=== PATIENT | male | born 1965 | race Caucasian/White ===

== ENCOUNTER 2022-11-29 06:09 | Outpatient (CLI) | payer BC, SELFPAY | END 2022-11-29 06:10 | disposition home or self-care (01) | LOC: OP CLINIC 06:12 | PROVIDERS: PCP Family Medicine; Visit Provider Internal Medicine | DX: Z12.11 Encounter for screening for malignant neoplasm of colon (principal); K57.30 Diverticulosis of large intestine without perforation or abscess without bleeding; Z80.0 Family history of malignant neoplasm of digestive organs; Z86.010 Personal history of colon polyps | CPT/HCPCS: 45378; J2250; J3010 ==

== ENCOUNTER 2023-03-10 07:40 | Outpatient (CLI) | payer BC, SELFPAY | END 2023-03-10 07:41 | disposition home or self-care (01) | LOC: NFLDREF 11:28 | PROVIDERS: PCP Family Medicine; Referring Provider Family Medicine; Visit Provider Family Medicine | DX: Z00.00 Encounter for general adult medical examination without abnormal findings (principal); I10 Essential (primary) hypertension; E78.5 Hyperlipidemia, unspecified; E66.9 Obesity, unspecified | CPT/HCPCS: 80048; 80053; 80061 ==

== ENCOUNTER 2023-09-16 08:05 | Outpatient (CLI) | payer BC, SELFPAY ==
--- OUTSIDE RECORDS SUMMARY | 2023-09-16 08:07 | XMS_ITS | Clinical Summary ---
Author Name Unknown Organization [employer] [facility] Address [place], [place] [address] Care Team Providers Care General Manager Land Department Name Role Phone Pcp, No Primary Care Provider Unavailabl e Allergies Active Allergy Reactions Criticality Noted Date Comments No Known Drug Allergies Penicillins 12/12/2006 as a child Sulfa (Sulfonamide Antibiotics) Rash 09/2008 Medications Medication Sig Dispensed Refills Start Date End Date Status NIMESH 180 MG TAB take 1 tablet (180mg) by oral route once daily 0 Active medication order composer 0 05/17/2014 Active INHALANT IMMUNOTHERAPYIndication s:Allergic rhinitis, unspecified allergic rhinitis type See recipe/order under Chart Review/Scan Tab 0 03/29/2015 Active Active Problems Problem Noted Date Diagnosed Date Allergic rhinitis, cause unspecified 12/10/2006 Overview: cats,dust Immunizations Name Administration Dates Next Due Td (Age >=7 Years) 12/27/1999 Social History Tobacco Use Types Packs/Day Years Used Date Smoking Tobacco: Never Smokeless Tobacco: Never Tobacco Cessation:Counseling Given: Yes Alcohol Use Standard Drinks/Week Comments Not Asked 0 (1 standard drink = 0.6 oz pur e alcohol) Sex and Gender Information Value Date Recorded Sex Assigned at Not on file Gender Identity Not on file Sexual Orientation Not on file Obstetrics History Last Filed Vital Signs Vital Sign Reading Time Taken Comments Blood Pressure 138/93 09/23/2018 9:51 AM COMMUNITY MENTAL HEALTH SOCIAL WORKER Pulse 82 09/23/2018 9:51 AM COMMUNITY MENTAL HEALTH SOCIAL WORKER Temperature 36.8 ??C (98.2 ??F) 05/17/2014 9:43 AM CD T Respiratory Rate - - Oxygen Saturation 97% 05/17/2014 9:43 AM CDT Inhaled Oxygen Concentration - - Weight 129.5 kg (285 lb 8 oz) 05/17/2014 9:43 AM CDT Height 179.1 cm (5' 10.5) 05/17/2014 9:43 AM CD T Body Mass Index 40.39 05/17/2014 9:43 AM CDT Plan of Treatment Health Maintenance Due Date Last Done Comments COVID-19 vaccine series (#1) 05/08/1968 Tdap 11/05/1978 Depression screening for age 12+ 1979 HIV for age 15-65 11/05/1982 BMI (ht and wt on same day) for age 18+ 11/05/1985 Hepatitis C screening for ag e 18-79 11/05/1985 Tetanus booster 12/26/2009 12/27/1999 Lipids for age 45-75 11/05/2012 Colonoscopy through age 75 12/12/201612/12, 12/12/2006 Zoster (shingles) series for age 50+ (1 of 2) 11/05/2017 Influenza for age 50-64 04/11/2023 Pneumococcal series for age 6-64 Aged Out No longer eligible b ased on patient's age to complete this topic Care Teams General Manager Land Department Relationship Specialty Start Date End Date Pcp, No . PCP - General 03/04/16
--- OUTSIDE RECORDS SUMMARY | 2023-09-16 08:07 | XMS_ITS | Clinical Summary ---
Author Name Unknown Organization [facility] Address [address] [place] [address] Care Team Providers Care Contracting Manager Name Role Phone Clinician, Not Found MD Primary Care Provider Un available Source Comments You are receiving this document as you are listed as the primary care provider,follow-up provider, or the patient has been referred to you for consultation.This is in compliance with the Medicare and[facility] EHR Incentive Program,which states Providers who transition their patient to another setting of careor provider of care or refers their patient to another provider of care shouldprovide summary care record for each transition of care or referral. [employer] Allergies Active Allergy Reactions Criticality Noted Date Comments Penicillins 01/19/2004 PN: LW Reaction: Unknown Reaction Sulfa Antibiotics 10/10/2008 PN: LW Reaction: rash/hives Medications Medication Sig Dispensed Refills Start Date End Date Status cetirizine (AKA ZYRTEC) 10 MG tablet Take 1 tablet by mouth daily (every 24 hours). 1 tablet 0 11/12/2012 Active azithromycin (AKA ZITHROMAX) 250 MG tablet Take 1 tablet by mouth daily (every 24 hours). Take 2 tablets the 1st day the every day x 4 days 6 tablet 0 11/12/2012 Active Additional Information Patient not taking.Reported on 11/10/2021 azithromycin (AKA ZITHROMAX) 250 MG tablet Take 2 tablets by mouth on day 1, then take 1 tablet by mouth daily on days 2-5. 6 tablet 0 06/11/2013 Active Additional Information Patient not taking.Reported on 11/10/2021 fluticasone (AKA VERAMYST) 27.5 MCG/SPRAY nasal solution Place 2 sprays into each nostril daily (every 24 hours). PUT ON FILE ONLY 10 g 11 01/04/2016 Active Additional Information Patient not taking.Reported on 12/15/2019 azelastine (ASTELIN) 0.1 % nasal solution Place 1 [place] into both nostrils two times a day. 30 mL 11 12/02/2018 Active Additional Information Patient not taking.Reported on 11/10/2021 pseudoephedrine (SUDOGEST 12 HOUR) 120 MG 12 hour release tablet Take 1 Tablet by mouth two times a day. 180 Tablet 1 12/15/2019 Active predniSONE (DELTASONE) 20 MG tablet Take 1 Tablet by mouth daily. 15 Tablet 0 12/15/2019 Active Additional Information Patient not taking.Reported on 11/10/2021 lisinopril (ZESTRIL) 10 MG tablet Take 5 mg by mouth daily. 0 Active cetirizine (ZYRTEC) 10 MG tablet Take 10 mg by mouth daily. 0 Active oxymetazoline (AFRIN) 0.05 % nasal spray Place 2 Sprays into both nostrils two times a day. 30 mL 0 11/10/2021 Active Active Problems Problem Noted Date Diagnosed Date Allergic rhinitis 01/15/2003 Overview: Rhinitis Allergic NOS Social History Tobacco Use Types Packs/Day Years Used Date Smoking Tobacco: Never Smokeless Tobacco: Never Sex and Gender Information Value Date Recorded Sex Assigned at Not on file Gender Identity Not on file Sexual Orientation Not on file Last Filed Vital Signs Vital Sign Reading Time Taken Comments Blood Pressure 174/97 11/10/2021 4:24 PM CDT Pulse 95 11/10/2021 4:24 PM CDT Temperature 37.1 ??C (98.8 ??F) 11/10/2021 4:24 PM CD T Respiratory Rate 18 11/10/2021 4:24 PM CDT Oxygen Saturation 100% 11/10/2021 4:24 PM CDT Inhaled Oxygen Concentration - - Weight 134.4 kg (296 lb 6.4 oz) 09/05/2021 8:42 AM RADIAL SAW OPERATOR Height 179.1 cm (5' 10.5) 09/05/2021 8:42 AM CS T Body Mass Index 41.93 09/05/2021 8:42 AM RADIAL SAW OPERATOR Plan of Treatment Health Maintenance Due Date Last Done Comments Colon Cancer Screening Plan Due 1967 Hep C Screening (Preventive Services) 1967 HepB (1) 1967 PSA Screening Discussion 1967 IPV (Polio) (2 of 3 - 4-dose series) 10/20/1977 09/22/1977 HIV Screening (Preventive Services) 1983 Adult Preventive Visit 11/05/1985 DTaP/Tdap/Td (1 - Tdap) 12/28/1999 12/27/1999 Cholesterol 11/05/2002 Zoster/Shingles (1 of 2) 11/05/2017 COVID-19 Vaccine (4 - season) 2023 06/27/2021, 11/23/2020, 10/26/2020 Influenza (#1) 2023 05/23/2021, 05/11, 05/25/2019, Additional history exists HepA Aged Out No longer eligi ble based on patient's age to complete this topic Hib Aged Out No longer eligi ble based on patient's age to complete this topic MCV4 Aged Out No longer eligi ble based on patient's age to complete this topic Pneumococcal Aged Out No longer eligi ble based on patient's age to complete this topic Care Teams Contracting Manager Relationship Specialty Start Date End Date Clinician, Not Found, [place] [address] PCP - General 04/28/14
--- NOTE | 2023-09-16 08:15 | MR_ITS ---
[facility] [address] [facility] [address] Phone:?[phone] Fax:?[phone] Referring Physician Information: Lavell Au M.D. [address] [place] [address] Phone:?[phone] Fax:?[phone] Patient:Travis Bryan D.O.B:?1965 Sex:?Male Phone:?[phone] [facility] MRN:?[id number] Exam Date:?09/16/2023 EXAM: MRI of the RIGHT KNEE, without contrast CLINICAL INFORMATION: Male, 57 years old, with right knee pain. INDICATION: Evaluate for meniscal tear. PRIOR SURGERY: None reported. PLAIN FILMS: Knee radiographs dated 09/08/2023. COMPARISONS: No prior MRIs available. TECHNICAL INFORMATION: Using a 1.5T MR scanner and a localizing surface coil: sagittals: PD, PDFS coronals: PD, T2FS axials: PD, PDFS SEDATION: None CONTRAST: None FINDINGS: Knee joint: Effusion: Moderate-marked right knee effusion, with synovitis. Popliteal cyst: Small, unruptured popliteal (Tolliver's) cyst. Loose bodies: None. Subcutaneous and extra-articular soft tissues: Moderate-marked anterior subcutaneous soft tissue swelling extending from the patella to the tibial tubercle (sagittal T2FS series 6 image 14). Ligaments: ACL: Intact ACL anteromedial and posterolateral bundles, without sprain or tear. PCL: Mild thickening and abnormal signal throughout the distal PCL, without PCL tear (sagittal T2FS series 6 image 17). MCL: Intact MCL superficial and deep layers, without injury. LCL: Intact LCL, without injury. Posterolateral corner: No posterolateral corner soft tissue injury. Popliteus, biceps femoris, iliotibial band, popliteofibular ligament and lateral gastrocnemius are intact. Posteromedial corner: No posteromedial corner soft tissue injury. Semimembranosus, pes anserine tendons and posterior oblique ligament are without injury, tendinopathy or bursitis. Extensor mechanism: Patellar tendon: Intact, without tendinopathy. Quadriceps tendon: Intact, without tendinopathy. Retinacula: Medial and lateral retinacula are intact. Fat pads: Mild edema-like signal is present throughout the knee fat pads, in keeping with synovitis. Medial compartment: Medial meniscus: Apical free edge and undersurface tearing of the posterior horn of the medial meniscus measures 1.6 cm involving approximately two thirds of the meniscal thickness (sagittal T2FS series 6 images 21-25). Meniscal extrusion measures 4 mm. A 1.0 x 0.3 x 0.2 cm flap fragment has extruded into the meniscotibial recess at the posterior horn/body junction (coronal STIR series 8 image 21 and axial T2FS series 4 image 25). Medial femoral condyle: No chondromalacia or osteochondral abnormality. Medial tibial plateau: No chondromalacia or osteochondral abnormality. Lateral compartment: Lateral meniscus: No articular surface, meniscosynovial junction or root tear. No displacement, extrusion or parameniscal cyst. Lateral femoral condyle: No chondromalacia or osteochondral abnormality. Lateral tibial plateau: No chondromalacia or osteochondral abnormality. Patellofemoral joint: Patella: Generalized grade II/III chondromalacia of the patella, with minimal marginal osteophytosis. Trochlea: Broad-based grade II/III chondromalacia of the lateral trochlear facet, with minimal marginal osteophytosis. Proximal tibiofibular joint: Unremarkable, without evidence of ligament sprain injury, joint effusion or adjacent marrow edema. Bones: No stress/occult fractures or other marrow edema/pathology. IMPRESSION: 1. Complex apical free edge and undersurface tearing of the posterior horn of the medial meniscus measuring 1.6 cm and involving approximately two thirds of the meniscal thickness, with 4 mm of meniscal extrusion and a 10 x 2 x 3 mm flap fragment that has extruded into the meniscotibial recess. 2. Mild osteoarthritis of the patellofemoral compartment. 3. Grade 1 sprain versus mild mucinous degeneration of the PCL, distally. 4. Moderate-marked knee joint effusion, with synovitis and a small, unruptured popliteal (Tolliver's) cyst. 5. Extensive anterior subcutaneous soft tissue edema, which may reflect a soft tissue contusion. 6. No ACL, MCL, or LCL sprain/tear. 7. No lateral meniscal tear. 8. No osteochondral abnormality of the medial or lateral compartment. BC Electronically signed on 09/16/2023 10:51:00 AM by Franko Fernandez M.D.
== END 2023-09-16 08:06 | disposition home or self-care (01) ==
LOC: MRI 08:05
PROVIDERS: PCP Family Medicine; Visit Provider Orthopaedic Surgery
DX: M25.561 Pain in right knee (principal); S83.241A Other tear of medial meniscus, current injury, right knee, initial encounter; M17.11 Unilateral primary osteoarthritis, right knee; M25.461 Effusion, right knee; S83.521A Sprain of posterior cruciate ligament of right knee, initial encounter; S89.91XA Unspecified injury of right lower leg, initial encounter
CPT/HCPCS: 73721

== ENCOUNTER 2023-11-10 15:15 | Outpatient (RCR) | payer BC, SELFPAY | END 2024-01-16 12:23 | disposition home or self-care (01) | PROVIDERS: PCP Family Medicine; Visit Provider Orthopaedic Surgery | DX: M25.561 Pain in right knee (principal); Z51.89 Encounter for other specified aftercare | CPT/HCPCS: 97110; 97161 ==

== ENCOUNTER 2024-02-10 15:59 | Outpatient (CLI) | payer BC, SELFPAY ==
--- NOTE | 2024-02-10 16:00 | CRLHL7_ITS ---
For Patients: As a result of the Century Cures Act, medical imaging exams and procedure reports are released immediately into your electronic medical record. You may view this report before your referring provider. If you have questions, please contact your health care provider. Indication Right calf pain Technique Venous duplex ultrasound of the right lower extremity utilizing compression with grayscale and color and spectral Doppler. Comparison None Findings There is no sonographic evidence of deep vein thrombosis in the right common femoral, deep femoral, superficial femoral, popliteal, posterior tibial, peroneal, or contralateral common femoral veins. There is no visualized superficial vein thrombosis. The soft tissues are unremarkable. Impression No deep vein thrombosis in the right lower extremity. Dictated by Chris Cervantes MD @ 02/10/2024 4:47:57 PM (Electronically Signed)
--- OUTSIDE RECORDS SUMMARY | 2024-02-10 16:01 | XMS_ITS | Clinical Summary ---
Author Organization [facility] Address [address], [place] [address] Care Team Providers Care Candy Forming Machine Operator Name Role Phone Clinician, Not Found MD Primary Care Provider Un available Source Comments You are receiving this document as you are listed as the primary care provider,follow-up provider, or the patient has been referred to you for consultation.This is in compliance with the Medicare and[facility] EHR Incentive Program,which states Providers who transition their patient to another setting of careor provider of care or refers their patient to another provider of care shouldprovide summary care record for each transition of care or referral. [employer] Allergies Active Allergy Reactions Criticality Noted Date [...] (ASTELIN) 0.1 % nasal solution Place 1 [place] into both nostrils two times a day. 30 mL 11 12/02/2018 Active Additional Information Patient not taking.Reported on 11/10/2021 pseudoephedrine (SUDOGEST 12 HOUR) 120 MG 12 hour release tablet Take 1 Tablet by mouth two times a day. 180 Tablet 1 12/15/2019 Active predniSONE (DELTASONE) 20 MG tablet Take 1 Tablet by mouth daily. 15 Tablet 12/15/2019 Active Additional Information Patient not taking.Reported on 11/10/2021 lisinopril (ZESTRIL) 10 MG tablet Take 5 mg by mouth daily. Active cetirizine (ZYRTEC) 10 MG tablet Take 10 mg by mouth daily. Active oxymetazoline (AFRIN) 0.05 % nasal spray Place 2 Sprays into both nostrils two times a day. 30 mL 11/10/2021 Active Active Problems Problem Noted Date [...] (296 lb 6.4 oz) 09/05/2021 8:42 AM AIR BAG BUFFER Height 179.1 cm (5' 10.5) 09/05/2021 8:42 AM CS T Body Mass Index 41.93 09/05/2021 8:42 AM AIR BAG BUFFER Plan of Treatment Health Maintenance Due Date Last Done Comments Colon Cancer Screening Plan Due 1965 Hep C Screening (Preventive Services) 1965 PSA Screening Discussion 1967 IPV (Polio) (2 of 3 - 4-dose series) 10/20/1977 09/22/1977 HIV Screening (Preventive Services) 1983 Adult Preventive Visit 11/05/1985 HepB (1) 11/05/1986 DTaP/Tdap/Td (1 - Tdap) 12/28/1999 12/27/1999 Cholesterol 11/05/2002 Zoster/Shingles (1 of 2) 11/05/2017 COVID-19 Vaccine (4 - season) 2023 06/27/2021, 11/23/2020, 10/26/2020 Influenza (Season Ended) 2024 021, 05/24/2020, 05/25/2019, Additional history exists HepA Aged Out [...] age to complete this topic Care Teams Candy Forming Machine Operator Relationship Specialty Start Date End Date Clinician, Not Found, [place] [address] PCP - General 04/28/14
--- OUTSIDE RECORDS SUMMARY | 2024-02-10 16:01 | XMS_ITS | Clinical Summary ---
Author Organization [facility] [facility] Address [place], [place] [address] Care Team Providers Care Money Manager Name Role Phone Pcp, No Primary Care [...] Comments Blood Pressure 138/93 09/23/2018 9:51 AM GAS CONTROLLER Pulse 82 09/23/2018 9:51 AM GAS CONTROLLER Temperature 36.8 ??C (98.2 ??F) 05/17/2014 9:43 [...] Health Maintenance Due Date Last Done Comments Tdap 11/05/1978 Depression screening for age 12+ 1979 HIV for age 15-65 11/05/1982 BMI (ht and wt on same day) for age 18+ 11/05/1985 Hepatitis C screening for ag e 18-79 11/05/1985 Tetanus booster 12/26/2009 12/27/1999 Lipids for age 45-75 11/05/2012 Colonoscopy through age 75 12/12/201612/12, 12/12/2006 Zoster (shingles) series for age 50+ (1 of 2) 11/05/2017 COVID-19 vaccine series (2022-24 season) 2023 Influenza for age 50-64 04/11/2024 Pneumococcal series for age 6-64 Aged Out No longer eligible b ased on patient's age to complete this topic Procedures Procedure Name Priority Date/Time Associated Diagnosis Comments SCAN-COLONOSCOPY 12/12/2006 12:0 0 AM CDT from Last 3 Months or Most Recently Relevant to Health Maintenance Results * SCAN-COLONOSCOPY (12/12/2006 12:00 AM CDT) Scanner OTHER from Last 3 Months or Most Recently Relevant to Health Maintenance Care Teams Money Manager Relationship Specialty Start Date End Date Pcp, No . PCP - General 03/04/16
== END 2024-02-10 16:00 | disposition home or self-care (01) ==
LOC: US 15:59
PROVIDERS: PCP Family Medicine; Visit Provider Family Medicine
DX: M79.661 Pain in right lower leg (principal); M79.89 Other specified soft tissue disorders
CPT/HCPCS: 93971

== ENCOUNTER 2024-03-29 07:57 | Outpatient (CLI) | payer BC, SELFPAY ==
--- OUTSIDE RECORDS SUMMARY | 2024-03-29 14:57 | XMS_ITS | Clinical Summary ---
Author Organization [facility] Address [address], [place] [address] Care Team Providers Care Lever Tender Name Role Phone Clinician, Not Found MD Primary Care Provider Un available Source Comments You are receiving this document as you are listed as the primary care provider,follow-up provider, or the patient has been referred to you for consultation.This is in compliance with the Medicare and[facility] EHR Incentive Program,which states Providers who transition their patient to another setting of careor provider of care or refers their patient to another provider of care shouldprovide summary care record for each transition of care or referral. [employer] Allergies Active Allergy Reactions Criticality Noted Date [...] (ASTELIN) 0.1 % nasal solution Place 1 [place] into both nostrils two times a day. [...] Noted Date Diagnosed Date Allergic rhinitis 01/15/2003 Overview (04/02/2017): Rhinitis Allergic NOS Social History Tobacco Use [...] (296 lb 6.4 oz) 09/05/2021 8:42 AM MARKETING DATA SPECIALIST Height 179.1 cm (5' 10.5) 09/05/2021 8:42 AM CS T Body Mass Index 41.93 09/05/2021 8:42 AM MARKETING DATA SPECIALIST Plan of Treatment Health Maintenance Due Date [...] season) 2023 06/27/2021, 11/23/2020, 10/26/2020 Influenza (#1) 2024 05/23/2021, 05/11, 05/25/2019, Additional history exists HepA [...] age to complete this topic Care Teams Lever Tender Relationship Specialty Start Date End Date Clinician, Not Found, [place] [address] PCP - General 04/28/14
--- OUTSIDE RECORDS SUMMARY | 2024-03-29 14:57 | XMS_ITS | Clinical Summary ---
Author Organization [employer] [facility] Address [place], [place] [address] Care Team Providers Care Sample Examiner Name Role Phone Pcp, No Primary Care [...] Comments Blood Pressure 138/93 09/23/2018 9:51 AM BENZENE WASHER Pulse 82 09/23/2018 9:51 AM BENZENE WASHER Temperature 36.8 ??C (98.2 ??F) 05/17/2014 9:43 [...] Recently Relevant to Health Maintenance Care Teams Sample Examiner Relationship Specialty Start Date End Date Pcp, No . PCP - General 03/04/16
== END 2024-03-29 07:58 | disposition home or self-care (01) ==
LOC: NFLDREF 14:56
PROVIDERS: PCP Family Medicine; Referring Provider Family Medicine; Visit Provider Family Medicine
DX: E78.5 Hyperlipidemia, unspecified (principal); I10 Essential (primary) hypertension
CPT/HCPCS: 80053; 80061

== ENCOUNTER 2024-04-29 08:05 | Outpatient (CLI) | payer BC, SELFPAY ==
--- OUTSIDE RECORDS SUMMARY | 2024-04-30 08:41 | XMS_ITS | Clinical Summary ---
Author Organization [facility] Address [address], [place] [address] Care Team Providers Care Die Grinder Name Role Phone Clinician, Not Found MD Primary Care Provider Un available Source Comments You are receiving this document as you are listed as the primary care provider,follow-up provider, or the patient has been referred to you for consultation.This is in compliance with the Medicare and[facility] EHR Incentive Program,which states Providers who transition their patient to another setting of careor provider of care or refers their patient to another provider of care shouldprovide summary care record for each transition of care or referral. [employer] Allergies Active Allergy Reactions Criticality Noted Date [...] (ASTELIN) 0.1 % nasal solution Place 1 [place] into both nostrils two times a day. [...] (296 lb 6.4 oz) 09/05/2021 8:42 AM CNC LATHE PROGRAMMER Height 179.1 cm (5' 10.5) 09/05/2021 8:42 AM CS T Body Mass Index 41.93 09/05/2021 8:42 AM CNC LATHE PROGRAMMER Plan of Treatment Health Maintenance Due Date Last Done Comments Colon Cancer Screening Plan Due 1965 Hep C Screening (Preventive Services) 1965 PSA Screening Discussion 1967 IPV (Polio) (2 of 3 - 4-dose series) 10/20/1977 09/22/1977 HIV Screening (Preventive Services) 1983 Adult Preventive Visit 11/05/1985 HepB (1) 11/05/1986 DTaP/Tdap/Td (1 - Tdap) 12/28/1999 12/27/1999 Cholesterol 11/05/2002 Zoster/Shingles (1 of 2) 11/05/2017 COVID-19 Vaccine ( - season) 2024 06/27/2021, 11/23/2020, 10/26/2020 Influenza (#1) 2024 05/23/2021, [...] age to complete this topic Care Teams Die Grinder Relationship Specialty Start Date End Date Clinician, Not Found, [place] [address] PCP - General 04/28/14
--- OUTSIDE RECORDS SUMMARY | 2024-04-30 08:41 | XMS_ITS | Clinical Summary ---
Author Organization [employer] [facility] Address [place], [place] [address] Care Team Providers Care Shaker Washer Name Role Phone Pcp, No Primary Care [...] Diagnosed Date Allergic rhinitis, cause unspecified 12/10/2006 Overview (12/10/2006): cats,dust Immunizations Name Administration Dates Next Due [...] Comments Blood Pressure 138/93 09/23/2018 9:51 AM AGRICULTURE INSPECTOR Pulse 82 09/23/2018 9:51 AM AGRICULTURE INSPECTOR Temperature 36.8 ??C (98.2 ??F) 05/17/2014 9:43 [...] (1 of 2) 11/05/2017 COVID-19 vaccine series ( season) 2024 Influenza for age 50-64 04/11/2024 Pneumococcal series [...] Recently Relevant to Health Maintenance Care Teams Shaker Washer Relationship Specialty Start Date End Date Pcp, No . PCP - General 03/04/16
== END 2024-04-29 08:06 | disposition home or self-care (01) ==
LOC: NFLDREF 04-30 08:38
PROVIDERS: PCP Family Medicine; Referring Provider Family Medicine; Visit Provider Family Medicine
DX: E78.5 Hyperlipidemia, unspecified (principal); I10 Essential (primary) hypertension
CPT/HCPCS: 80048; 80061; 84450; 84460

== ENCOUNTER 2024-06-01 07:55 | Outpatient (CLI) | payer BC, SELFPAY ==
--- OUTSIDE RECORDS SUMMARY | 2024-06-03 11:19 | XMS_ITS | Clinical Summary ---
Author Organization [facility] Address [address], [place] [address] Care Team Providers Care Sustainable Products Marketing Manager Name Role Phone Clinician, Not Found MD Primary Care Provider Un available Source Comments You are receiving this document as you are listed as the primary care provider,follow-up provider, or the patient has been referred to you for consultation.This is in compliance with the Medicare and[facility] EHR Incentive Program,which states Providers who transition their patient to another setting of careor provider of care or refers their patient to another provider of care shouldprovide summary care record for each transition of care or referral. [employer] Allergies Active Allergy Reactions Criticality Noted Date [...] (ASTELIN) 0.1 % nasal solution Place 1 [place] into both nostrils two times a day. [...] (296 lb 6.4 oz) 09/05/2021 8:42 AM GOLF CLUB HEAD INSPECTOR AND ADJUSTER Height 179.1 cm (5' 10.5) 09/05/2021 8:42 AM CS T Body Mass Index 41.93 09/05/2021 8:42 AM GOLF CLUB HEAD INSPECTOR AND ADJUSTER Plan of Treatment Health Maintenance Due Date [...] on patient's age to complete this topic Infant RSV Aged Out No longer eligi ble based on patient's age to complete this topic MCV4 Aged Out No longer eligi ble based on patient's age to complete this topic Pneumococcal Aged Out No longer eligi ble based on patient's age to complete this topic Care Teams Sustainable Products Marketing Manager Relationship Specialty Start Date End Date Clinician, Not Found, [place] [address] PCP - General 04/28/14
--- OUTSIDE RECORDS SUMMARY | 2024-06-03 11:19 | XMS_ITS | Clinical Summary ---
Author Organization [employer] [facility] Address [place], [place] [address] Care Team Providers Care Hvac Project Manager Name Role Phone Pcp, No Primary [...] Comments Blood Pressure 138/93 09/23/2018 9:51 AM AVAYA ENGINEER Pulse 82 09/23/2018 9:51 AM AVAYA ENGINEER Temperature 36.8 ??C (98.2 ??F) 05/17/2014 9:43 [...] (1 of 2) 11/05/2017 COVID-19 vaccine series (2023- season) 2024 Influenza for age 50-64 04/11/2024 [...] Recently Relevant to Health Maintenance Care Teams Hvac Project Manager Relationship Specialty Start Date End Date Pcp, No . PCP - General 03/04/16
== END 2024-06-01 07:56 | disposition home or self-care (01) ==
LOC: NFLDREF 06-03 11:17
PROVIDERS: PCP Family Medicine; Referring Provider Family Medicine; Visit Provider Family Medicine
DX: E78.5 Hyperlipidemia, unspecified (principal); I10 Essential (primary) hypertension; E66.9 Obesity, unspecified
CPT/HCPCS: 80053; 80061

== ENCOUNTER 2024-07-02 07:49 | Outpatient (CLI) | payer BC, SELFPAY ==
--- OUTSIDE RECORDS SUMMARY | 2024-07-04 14:23 | XMS_ITS | Clinical Summary ---
Author Organization [facility] Address [place], [place] [address] Care Team Providers Care Envelope Machine Adjuster Name Role Phone Pcp, No Primary Care [...] Comments Blood Pressure 138/93 09/23/2018 9:51 AM [employer] Pulse 82 09/23/2018 9:51 AM [employer] Temperature 36.8 C (98.2 F) 05/17/2014 9:43 AM CDT Respiratory Rate - - Oxygen Saturation 97% [...] Recently Relevant to Health Maintenance Care Teams Envelope Machine Adjuster Relationship Specialty Start Date End Date Pcp, No . PCP - General 03/04/16
--- OUTSIDE RECORDS SUMMARY | 2024-07-04 14:23 | XMS_ITS | Clinical Summary ---
[facility] Address [address], [place] [address] Care Team Providers Care Assessment Expert Name Role Phone Clinician, Not Found MD Primary Care Provider Un available Source Comments You are receiving this document as you are listed as the primary care provider,follow-up provider, or the patient has been referred to you for consultation.This is in compliance with the Medicare and[facility] EHR Incentive Program,which states Providers who transition their patient to another setting of careor provider of care or refers their patient to another provider of care shouldprovide summary care record for each transition of care or referral. [facility] Allergies Active Allergy Reactions Criticality Noted Date [...] (ASTELIN) 0.1 % nasal solution Place [address] [place] into both nostrils two times a day. [...] 95 11/10/2021 4:24 PM CDT Temperature 37.1 C (98.8 F) 11/10/2021 4:24 PM CDT Respiratory Rate 18 11/10/2021 4:24 PM CDT Oxygen Saturation 100% 11/10/2021 4:24 PM CDT Inhaled Oxygen Concentration - - Weight 134.4 kg (296 lb 6.4 oz) 09/05/2021 8:42 AM [employer] Height 179.1 cm (5' 10.5) 09/05/2021 8:42 AM CS T Body Mass Index 41.93 09/05/2021 8:42 AM [employer] Plan of Treatment Health Maintenance Due Date [...] (1 of 2) 11/05/2017 COVID-19 Vaccine ( season) 2024 06/27/2021, 11/23/2020, 10/26/2020 Influenza (#1) [...] age to complete this topic Care Teams Assessment Expert Relationship Specialty Start Date End Date Clinician, Not Found, [place] [address] PCP - General 04/28/14
== END 2024-07-02 07:50 | disposition home or self-care (01) ==
LOC: NFLDREF 07-04 14:22
PROVIDERS: PCP Family Medicine; Referring Provider Family Medicine; Visit Provider Family Medicine
DX: I10 Essential (primary) hypertension (principal)
CPT/HCPCS: 80048

== ENCOUNTER 2025-03-31 07:35 | Outpatient (CLI) | payer BC, SELFPAY | END 2025-03-31 07:36 | disposition home or self-care (01) | LOC: NFLDREF 04-05 11:11 | PROVIDERS: PCP Family Medicine; Referring Provider Family Medicine; Visit Provider Family Medicine | DX: E78.5 Hyperlipidemia, unspecified (principal); I10 Essential (primary) hypertension | CPT/HCPCS: 80053; 80061 ==

== ENCOUNTER 2025-07-06 07:52 | Outpatient (CLI) | payer BC, SELFPAY | END 2025-07-06 07:53 | disposition home or self-care (01) | LOC: NFLDREF 07-12 06:04 | PROVIDERS: PCP Family Medicine; Referring Provider Family Medicine; Visit Provider Family Medicine | DX: E78.5 Hyperlipidemia, unspecified (principal) | CPT/HCPCS: 80061 ==